=== PATIENT | male | born 1990 | race Caucasian/White ===

== ENCOUNTER 2018-08-26 10:40 | Observation (INO) | payer OTHER, SELFPAY ==
[2018-08-26] MEDS ORDERED: Ondansetron PF 4 MG/2 ML Vial IVP PRN (14:24)
[2018-08-26] MEDS ORDERED: Promethazine HCl 25 MG/ML VIAL IM PRN ×2 (14:24)
[2018-08-26] MEDS ORDERED: Ondansetron ODT 4 MG TAB PO PRN (14:24)
[2018-08-26] MEDS ORDERED: Dextrose 50% Abboject 50 ML SYRINGE SLOW IVP PRN (14:24)
[2018-08-26] MEDS ORDERED: Chloraseptic Spray 180 ml Bottle PO PRN (14:24)
[2018-08-26] MEDS ORDERED: Dextrose 5% in Water 1,000 ML IV PRN (14:24)
[2018-08-26] MEDS ORDERED: Acetaminophen 1,000 MG in Premix Bag 1 BAG IVPB SCH (14:45)
[2018-08-26] MEDS: Sodium Chloride 0.9% 1,000 ML IV SCH ×2 (15:14→19:47)
[2018-08-26 16:42] VITALS: BMI 24.3
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
[2018-08-26] MEDS: Acetaminophen 500 MG TAB PO SCH (19:45)
[2018-08-26] MEDS: Famotidine 20 MG TAB PO SCH (19:45)
[2018-08-26] MEDS: Senokot S 8.6-50 MG TAB PO SCH (19:45)
[2018-08-26] MEDS: traMADol HCl 50 MG TAB PO PRN (22:08)
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
[2018-08-27] MEDS: Acetaminophen 500 MG TAB PO SCH ×2 (02:08→08:14)
[2018-08-27] MEDS: traMADol HCl 50 MG TAB PO PRN (02:08)
[2018-08-27 04:42] LABS: #Basophils 0.1 thou/uL (0.0-0.2); #Eosinphils 0.1 thou/uL (0.0-0.7); #Monocytes 0.8 thou/uL (0.11-0.59); #Neutrophils 7.4 thou/uL (1.40-6.50); %Basophils 0.6 % (0.0-1.0); %Eosinophils 1.1 % (0.0-10.0); %Monocytes 7.8 % (0.0-10.0); %Neutrophils 71.5 % (42.0-75.0); Hemoglobin 14.8 g/dL (14.0-18.0); Mean Corpuscular Hemoglobin 31.7 pg (27.0-31.0); Mean Corpuscular Volume 96.1 fL (78.0-98.0); Mean Platelet Volume 7.1 fL (7.4-10.4); Platelet Count 198 thou/uL (130-400); RBC Distribution Width 11.9 % (11.5-14.5); Red Blood Cell (RBC) Count 4.66 mill/uL (4.70-6.10); White Blood Cell (WBC) Count 10.3 thou/uL (4.8-10.8)
[2018-08-27 05:05] LABS: Anion Gap 12 mmol/L (10-20); BUN (Urea Nitrogen) 5 mg/dL (8.9-20.6); Calc. Creatinine Clearance 140 mL/min (70-130); Calcium 8.7 mg/dL (7.8-10.44); Carbon Dioxide 24 mmol/L (22-29); Chloride 101 mmol/L (98-107); Estimated GFR-MDRD Greater than 90; Glucose 94 mg/dL (70-105); Potassium 3.5 mmol/L (3.5-5.1); Sodium 133 mmol/L (136-145)
[2018-08-27] MEDS: Famotidine 20 MG TAB PO SCH (08:14)
[2018-08-27] MEDS: Senokot S 8.6-50 MG TAB PO SCH (08:14)
--- NOTE | 2018-08-27 09:13 | CT ---
CT BRAIN WITH AND WITHOUT CONTRAST: DATE: 08/27/2018 HISTORY: 28-year-old male follow-up traumatic intracranial hemorrhage COMPARISON: 08/26/2018 TECHNIQUE: Precontrast scan of the brain. IV injection of iodinated contrast media. Postcontrast scan of brain. FINDINGS: There is no evidence of acute intra-axial. There is no midline shift or any other mass effect. There is no extra-axial fluid collection. The ventricles are normal in size and configuration. There is no abnormal enhancement or mass. The tympanomastoid cavities, and the upper portions of the paranasal sinuses included in these images, are grossly clear. Calvarium is intact. The previously demonstrated subdural hemorrhage along the left tentorium cerebelli, and the previously demonstrated subdural thin hemorrhage along the posterior interhemispheric falx, have both almost completely resolved. The punctate focal hyperdensity at the left frontal canut-white junction, which may have bee n artifact or tiny focal acute intra-axial hemorrhage, is no longer visualized. IMPRESSION: 1. Essentially normal. 2. The acute subdural hematoma along the left tentorium cerebelli has almost completely resolved. 3. The thin extra-axial hemorrhage along the posterior interhemispheric falx, has almost completely r esolved.
--- NOTE | 2018-08-27 09:20 | RAD ---
CHEST 1 VIEW: HISTORY: Followup exam. COMPARISON: None. FINDINGS: Normal cardiac silhouette. Lungs and pleural spaces are clear. No pneumothorax or osseous abnormali ties. IMPRESSION: No acute cardiopulmonary process. POS: OFF
[2018-08-27 12:28] VITALS: BP 139/85; TEMP 97.9
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
== END 2018-08-27 12:20 ==
LOC: ERS 10:40 → SURG B 14:24
PROVIDERS: ADMIT Surgery; ATTEND Surgery
DX: S06.5X9A Traumatic subdural hemorrhage with loss of consciousness of unspecified duration, initial encounter (principal); T14.8XXA Other injury of unspecified body region, initial encounter; F41.9 Anxiety disorder, unspecified; F31.9 Bipolar disorder, unspecified; F20.9 Schizophrenia, unspecified; F12.10 Cannabis abuse, uncomplicated; F15.10 Other stimulant abuse, uncomplicated; Z79.899 Other long term (current) drug therapy; V48.4XXA Person boarding or alighting a car injured in noncollision transport accident, initial encounter
CPT/HCPCS: 36415; 70450; 71045; 80048; 82375; 85025; 96360; 96361; 96374; 96375; 96376; G0378; G0390; J0131; J2405; Q0162